=== PATIENT | female | born 1945 | race Caucasian/White ===

== ENCOUNTER 2017-06-07 11:13 | Emergency (ER) | payer MEDICARE, BC ==
[~2017-06-07] VITALS: Ht 160 cm; Wt 62.0 kg
[2017-06-07 11:16] VITALS: BP 168/79; PULSE 73; RESP 16; TEMP 98.5; O2SAT 96
[2017-06-07] MEDS ORDERED: ALEN1TAB48 PO (11:31)
[2017-06-07] MEDS ORDERED: ROSU5 PO (11:31)
[2017-06-07] MEDS ORDERED: OCUF0.3D RIGHT EYE (12:31)
--- NOTE | 2017-06-07 12:31 | PD ---
HPI Chief Complaint: Eye Problems/Injury Time Seen by Provider: 11:56 Travel History International Travel<30 days: No Contact w/Intl Traveler<30days: No Traveled to known affect area: No History of Present Illness HPI 72-year-old female here with intermittent right eye pain 3 days. Also having foreign body sensation today. Denies injury or trauma. Denies visual changes. Denies headache. Does not wear contact lenses. Symptom severity is mild to moderate. No aggravating or alleviating factors PFSH Past Medical History Hx Anticoagulant Therapy: Yes (325 ASA DAILY) Cardiovascular Problems: Yes (CHOL) Diabetes: Yes Patient Takes Glucophage: No Diminished Hearing: No Influenza Vaccination: No ?: Not Social History Alcohol Use: Yes (wine with dinner) Tobacco Use: No Substance Use: No Allergies-Medications (Allergen,Severity, Reaction): Coded Allergies: No Known Allergies (Unverified , 06/07/17) Reported Meds & Prescriptions Reported Meds & Active Scripts Active Ocuflox Opth Drops (Ofloxacin Opth Drops) 0.3 % Drops 1 Drop RIGHT EYE Q6HR Reported Alendronate (Alendronate Sodium) 70 Mg Tab 70 Mg PO Q7D Crestor (Rosuvastatin Calcium) 5 Mg Tab 5 Mg PO DAILY Review of Systems Except as stated in HPI: all other systems reviewed are Neg General / Constitutional: No: Fever Eyes: Positive: Foreign Body Sensation, Pain HENT: No: Headaches Cardiovascular: No: Chest Pain or Discomfort Respiratory: No: Shortness of Breath Gastrointestinal: No: Abdominal Pain Genitourinary: No: Dysuria Physical Exam Narrative GENERAL: Alert and well-appearing 72-year-old female. SKIN: Warm and dry. HEAD: Normocephalic. No temporal tenderness EYES: Right eye mildly injected. Corneas clear. Pupils equal, round, reactive to light. EOMs intact. Visual robertson intact. IOP: R: 11. Visual acuity: L:20 /25, R: 20/30. Small 2 mm area of fluorescein dye uptake to the right eye over the iris. NECK: Supple, trachea midline. CARDIOVASCULAR: Regular rate and rhythm RESPIRATORY: Breath sounds equal bilaterally. No accessory muscle use. MUSCULOSKELETAL: No cyanosis, or edema. Data Data Last Documented VS Vital Signs Date Time Temp Pulse Resp B/P (MAP) Pulse Ox O2 Delivery O2 Flow Rate FiO2 06/07/17 11:16 98.5 73 16 168/79 (108) 96 Orders Orders Ed Discharge Order (06/07/17 12:31) MDM Medical Decision Making Medical Screen Exam Complete: Yes Emergency Medical Condition: Yes Differential Diagnosis Corneal abrasion, corneal ulcer, corneal foreign body, acute angle-closure glaucoma Narrative Course 72-year-old female here with intermittent right eye pain 3 days. Also having foreign body sensation today. Denies injury or trauma. Physical exam is reassuring. She has small 2 mm area of fluorescein dye uptake over the iris. Normal visual acuity. Normal pressures in the eye. She will be treated for corneal abrasion instructed to follow-up with end polisher this week. Diagnosis Primary Impression: Eye pain Qualified Codes: H57.11 - Ocular pain, right eye Referrals: Herminia Rivera MDfagot heater Additional Instructions: Antibiotics as directed. Follow-up with ophthalmology. Return if you have new or worsening symptoms which would include severe pain, vision loss Scripts Ofloxacin Opth Drops (Ocuflox Opth Drops) 0.3 % Drops 1 DROP RIGHT EYE Q6HR for Infection, #1 BOTTLE 0 Refills Prov: Salma Marquez 06/07/17 Disposition: 01 DISCHARGE HOME Condition: Stable Salma Marquez June 07, 2017 12:31
== END 2017-06-07 12:40 | disposition home or self-care (01) ==
LOC: PHEFT 11:13
DX: H57.11 Ocular pain, right eye (principal); E11.9 Type 2 diabetes mellitus without complications; E78.00 Pure hypercholesterolemia, unspecified
CPT/HCPCS: 99283